=== PATIENT | male | born 1975 | race Caucasian/White ===

== ENCOUNTER 2017-03-24 23:26 | Emergency (ER) | payer SELFPAY ==
[~2017-03-24] VITALS: Ht 185.4 cm; Wt 79.5 kg
[2017-03-24 23:35] VITALS: BP 166/112
[2017-03-25] MEDS ORDERED: CLIN300C53 PO (12:11)
[2017-03-25] MEDS ORDERED: ACET1TAB12 PO (12:12)
== END 2017-03-25 02:35 | disposition left against medical advice (07) ==
LOC: ER 23:27
DX: J34.89 Other specified disorders of nose and nasal sinuses (principal); Z53.21 Procedure and treatment not carried out due to patient leaving prior to being seen by health care provider